=== PATIENT | male | born 1965 | race Caucasian/White ===

== ENCOUNTER 2021-10-03 12:52 | Emergency (ER) | payer SELFPAY ==
[~2021-10-03] VITALS: Ht 167.6 cm; Wt 108.9 kg
[2021-10-03 13:01] VITALS: BP 131/50
[2021-10-03] MEDS ORDERED: BEN50 PO (14:04)
[2021-10-03] MEDS ORDERED: LORA-1447 PO (14:04)
[2021-10-03] MEDS ORDERED: CEPH-588 PO (14:04)
[2021-10-03] MEDS ORDERED: PRED20TA5 PO (14:04)
--- NOTE | 2021-10-03 14:05 | NUR ---
NO NURSING CARE RENDERED Patient discharged with v/s stable. Written and verbal after care instructions given and explained. Patient alert, oriented and verbalized understanding of instructions. Ambulatory with steady gait. All questions addressed prior to discharge. ID band removed. Patient advised to follow up with PMD. Rx of KEFLEX, BENADRYL,DELTASONE given. Patient educated on indication of medication including possible reaction and side effects. Opportunity to ask questions provided and answered.
== END 2021-10-03 14:05 | disposition home or self-care (01) ==
LOC: MED 12:52
DX: L30.9 Dermatitis, unspecified (principal); R03.0 Elevated blood-pressure reading, without diagnosis of hypertension; Z79.2 Long term (current) use of antibiotics; Z79.899 Other long term (current) drug therapy
CPT/HCPCS: 99283